=== PATIENT | male | born 1985 | race Caucasian/White ===

== ENCOUNTER 2017-08-18 11:46 | Inpatient (IN) | payer OTHER ==
[~2017-08-18] VITALS: Ht 175.2 cm; Wt 66.3 kg
[2017-08-18 12:38] VITALS: BP 115/61
[2017-08-18 12:40] LABS: BASO # 0.1 10*3/uL (0.0-0.1); BASO % 1.3 % (0.0-1.0); EOS # 0.5 10*3/uL (0.0-0.4); EOS % 7.2 % (1.0-4.0); HEMOGLOBIN 13.2 g/dl (14.0-18.0); LYMPH # 2.1 10*3/uL (1.3-4.4); LYMPH % 29.2 % (27.0-41.0); MEAN CELL VOLUME 89.6 fl (80.0-94.0); MEAN CORPUSCULAR HGB 31.1 pg (27.0-31.0); MEAN CORPUSCULAR HGB CONC 34.7 g/dl (33.0-37.0); MEAN PLATELET VOLUME 10.1 fl (9.6-12.3); MONO # 0.6 10*3/uL (0.1-1.0); MONO % 8.2 % (3.0-9.0); NEUT # 3.8 10*3/uL (2.3-7.9); NEUT % 53.8 % (47.0-73.0); PLATELET COUNT AUTOMATED 224 10*3/uL (130-400); RED BLOOD COUNT 4.24 10*6/uL (4.50-5.90); RED CELL DISTRI WIDTH 13.3 % (0-14.5); WHITE BLOOD COUNT 7.1 10*3/uL (4.8-10.8)
[2017-08-18 12:56] LABS: ALBUMIN 3.8 gm/dl (3.1-4.5); ALKALINE PHOSPHATASE 91 U/L (45-117); BUN 19 mg/dl (7-24); CHLORIDE 108 mmol/L (98-107); CREATININE 0.96 mg/dL (0.70-1.30); POTASSIUM 3.6 mmol/L (3.5-5.1); SGOT/AST 18 IU/L (3-35); SGPT/ALT 21 U/L (12-78); SODIUM 141 mmol/L (136-145); TOTAL PROTEIN 6.6 gm/dL (6.4-8.2)
[2017-08-18 13:01] LABS: ETHYL ALCOHOL < 3.0 mg/dl (<3)
[2017-08-18 13:04] LABS: THYROID STIM HORMONE (HS) 0.214 uIU/ml (0.358-4.75)
[2017-08-18 13:07] LABS: BILIRUBIN 1+ (NEGATIVE); BLOOD NEGATIVE (NEGATIVE); CLARITY SL CLOUDY (CLEAR); COLOR YELLOW (YELLOW); GLUCOSE NEGATIVE (NEGATIVE); KETONE NEGATIVE (NEGATIVE); LEUKO ESTERASE NEGATIVE (NEGATIVE); NITRITE NEGATIVE (NEGATIVE); SPECIFIC GRAVITY >= 1.030 (1.005-1.030)
[2017-08-18 13:17] LABS: URINE AMPHETAMINES < 1000 (1000ng/ml); URINE BARBITURATES < 200 (200ng/ml); URINE BENZODIAZEPINES > 200 (200ng/ml); URINE CANNABINOIDS (THC) > 50 (50ng/ml); URINE COCAINE > 300 (300ng/ml); URINE METHADONE < 300 (300ng/ml); URINE OPIATES > 300 (300ng/ml)
[2017-08-18 13:20] LABS: URINE PHENCYCLIDINE < 25 (25ng/ml)
[2017-08-18 13:42] LABS: BACTERIA 1+; CALCIUM OXALATE CRYSTALS 3+; MUCOUS 3+
[2017-08-18 13:50] VITALS: BP 115/70
--- NOTE | 2017-08-18 14:09 | NUR ---
PATIENT MEDICATED WITH ROBAXIN & VISTARIL AT THIS TIME PER PRN ORDER FOR COMPLAINTS OF AGITATION & MUSCLE ACHES. WILL MONITOR FOR EFEFCTIVENESS.
[2017-08-18 16:00] VITALS: BP 111/65
[2017-08-18 20:00] VITALS: BP 122/52
[2017-08-19] VITALS: BP 107/46
[2017-08-19 04:00] VITALS: BP 118/64
--- NOTE | 2017-08-19 05:55 | NUR ---
PATIENT DENIES THE NEEDS FOR ANY PRN'S THROUGHOUT THE NIGHT OR NOW.
[2017-08-19 08:00] VITALS: BP 120/80
--- NOTE | 2017-08-19 08:52 | NUR ---
Patient displaying withdrawal symptoms, including: anxiety, muscle aches and restless legs. Scheduled/PRN medications provided. Will continue to monitor medication effectiveness.
--- NOTE | 2017-08-19 10:01 | NUR ---
Patient resting. Responding to scheduled medications with fewer complaints of pain and anxiety.
[2017-08-19 12:00] VITALS: BP 95/55
--- NOTE | 2017-08-19 15:00 | NUR ---
PT MEDICATED WITH PO ROBAXIN AND VISTARIL PER PRN ORDER FOR MUSCLE ACHES AND ANXIETY. WILL MONITOR EFFECTIVENESS.
[2017-08-19 16:00] VITALS: BP 116/87
--- NOTE | 2017-08-19 16:30 | NUR ---
Patient resting. Responding to scheduled medications with fewer complaints of pain and anxiety.
--- NOTE | 2017-08-19 19:30 | NUR ---
ASSUMED CARE OF PT AT THIS TIME, CALL LIGHT WITH IN REACH
[2017-08-19 20:00] VITALS: BP 127/76
--- NOTE | 2017-08-20 02:34 | NUR ---
RESTING IN BED WITH EYES CLOSED RESPS EASY AND NONLABORED WITH NO S/S OF DISTRESS CALL LIGHT WITH IN REACH
--- NOTE | 2017-08-20 06:00 | NUR ---
PT C/O INCREASED ANXIETY ADMINSITERED PRN VISTARIL PO PER ORDERS WILL MONITOR EFFECTS, PT ALSPO C/O MUSCLE ACHES ADMINSTERED PRN ROBAXIN PO PRN PER ORDERS, WILL MONITOR EFFECTS
--- NOTE | 2017-08-20 06:56 | NUR ---
PRN WITHDRAWL MEDICATIONS EFFECTIVE AT THIS TIME, PT RESTING IN BED WITH EYES CLOSED
[2017-08-20 08:00] VITALS: BP 100/63
--- NOTE | 2017-08-20 08:05 | NUR ---
PT C/O BACK PAIN, RATES PAIN 9 ON PAIN SCALE 0-10. MEDICATED WITH MOTRIN PO PER PRN ORDER, SEE EMAR. CALL LIGHT IN REACH. SEE SHIFT ASSESSMENT.
--- NOTE | 2017-08-20 09:00 | NUR ---
Patient resting. Responding to scheduled medications with fewer complaints of pain and anxiety. CALL LIGHT IN REACH.
[2017-08-20 12:00] VITALS: BP 122/60
--- NOTE | 2017-08-20 15:08 | NUR ---
D/C PLANNING: PATIENT IS GOING TO [facility] TO PARTICIPATE IN TEEN CHALLEN[facility]. CLINICAL PSYCHIATRIST LEFT MESSAGE WITH DERREK CERRATO TO MAKE ARRANGEMENTS FOR TRANSPORTATION. PATIENT UNDERSTANDS AND AGREES TO AFTERCARE PLAN. JAIME CROWELL B.A. CLINICAL PSYCHIATRIST
[2017-08-20 16:00] VITALS: BP 103/57
--- NOTE | 2017-08-20 16:58 | NUR ---
PT TOLERATED ROUTINE SUBUTEX FOR WITHDRAWAL SYMPTOMS. ALSO C/O MUSCLE ACHES AND ANXIETY. MEDICATED WITH ROBAXIN PO AND VISTARIL PO PER PRN ORDER, SEE EMAR. CALL LIGHT IN REACH.
--- NOTE | 2017-08-20 21:36 | NUR ---
PATIENT GIVEN NICOTINE GUM,REQUIP, TRAZODONE, AND MOTRIN PER PRN ORDER FOR C/O NICOTINE CRAVINGS, RESTLESS LEGS,GENERALIZED DISCOMFORT AND INABILITY TO SLEEP. SEE EMAR. REINFORCED USE OF CALL LIGHT.
[2017-08-21] VITALS: BP 120/57
[2017-08-21 06:10] LABS: BASO # 0.1 10*3/uL (0.0-0.1); BASO % 0.8 % (0.0-1.0); EOS # 0.5 10*3/uL (0.0-0.4); EOS % 7.2 % (1.0-4.0); HEMATOCRIT 39.4 % (42.0-52.0); HEMOGLOBIN 13.2 g/dl (14.0-18.0); LYMPH # 3.1 10*3/uL (1.3-4.4); LYMPH % 42.9 % (27.0-41.0); MEAN CELL VOLUME 90.6 fl (80.0-94.0); MEAN CORPUSCULAR HGB 30.3 pg (27.0-31.0); MEAN CORPUSCULAR HGB CONC 33.5 g/dl (33.0-37.0); MEAN PLATELET VOLUME 11.3 fl (9.6-12.3); MONO # 0.6 10*3/uL (0.1-1.0); MONO % 8.1 % (3.0-9.0); NEUT # 2.9 10*3/uL (2.3-7.9); NEUT % 40.7 % (47.0-73.0); PLATELET COUNT AUTOMATED 212 10*3/uL (130-400); RED BLOOD COUNT 4.35 10*6/uL (4.50-5.90); RED CELL DISTRI WIDTH 13.3 % (0-14.5); WHITE BLOOD COUNT 7.1 10*3/uL (4.8-10.8)
[2017-08-21 06:44] LABS: CREATININE 0.94 mg/dL (0.70-1.30)
[2017-08-21 08:00] VITALS: BP 97/52
--- NOTE | 2017-08-21 09:13 | NUR ---
PATIENT IS IN NEED OF TRANSPORTATION AFTER DISCHARGE. [employer] IS WORKING ON SETTING UP RIDE. [employer]ER WILL CONTACT PATIENT WITH TIME. JAIME CROWELL B.A. [employer] OFFICER
[2017-08-21] MEDS ORDERED: ZOFRAN 4 MG ED2 TAB PO (09:22)
[2017-08-21] MEDS ORDERED: ATARAX,VISTARIL50 MG PO (09:22)
--- NOTE | 2017-08-21 10:26 | NUR ---
PATIENT TRANSPORTATION WILL BE HERE BETWEEN 11:00AM-11:30AM. [employer] INSTALLER NOTIFIED PATIENT AND FLOOR. JAIME CROWELL B.A. INTAKE COORDIANTOR
--- NOTE | 2017-08-21 11:14 | NUR ---
[facility] Discharge instructions reviewed with patient/family. Patient receptive and verbalizes understanding. Follow-up care arranged. Written instructions given to patient/family. KARINA SPARKS
== END 2017-08-21 11:14 | disposition home or self-care (01) | DRG 897 ==
LOC: ED 11:46 → 4NE 12:43 → 4E 12:43
PROVIDERS: Emergency Medicine; ADMIT Internal Medicine
DX: F11.23 Opioid dependence with withdrawal (principal); E87.8 Other disorders of electrolyte and fluid balance, not elsewhere classified; F13.10 Sedative, hypnotic or anxiolytic abuse, uncomplicated; F14.10 Cocaine abuse, uncomplicated; F41.8 Other specified anxiety disorders; D64.9 Anemia, unspecified; F12.10 Cannabis abuse, uncomplicated; F17.210 Nicotine dependence, cigarettes, uncomplicated; Z71.6 Tobacco abuse counseling; Z90.49 Acquired absence of other specified parts of digestive tract